=== PATIENT | male | born 1965 | race Two or more races ===

== ENCOUNTER 2021-08-15 08:51 | Emergency (ER) | payer SELFPAY ==
[~2021-08-15] VITALS: Ht 175.3 cm; Wt 86.2 kg
[2021-08-15 10:08] VITALS: BP 126/81
[2021-08-15] MEDS ORDERED: AMOX500T86 PO (10:28)
[2021-08-15] MEDS ORDERED: ACE650RS PR (10:28)
[2021-08-15] MEDS ORDERED: METH4PAK PO (10:28)
== END 2021-08-15 10:39 | disposition home or self-care (01) ==
LOC: ER 08:51
DX: R51.9 Headache, unspecified (principal); J01.90 Acute sinusitis, unspecified
CPT/HCPCS: 70450